=== PATIENT | female | born 1990 | race Caucasian/White ===

== ENCOUNTER 2020-07-13 08:34 | Emergency (ER) | payer OTHER, SELFPAY ==
[2020-07-13 08:48] VITALS: BP 115/85; PULSE 88; RESP 16; TEMP 36.9; O2SAT 97
--- NOTE | 2020-07-13 09:36 | ED.URI ---
HPI - URI/Sore Throat General Chief Complaint: Upper Respiratory Infection Stated Complaint: fever headache nausea Time Seen by Provider: 07/13/20 09:01 Source: patient and RN notes reviewed Mode of arrival: ambulatory Limitations: no limitations History of Present Illness HPI Narrative: Patient presents today complaining of a 2-day history of fatigue and headache with a fever that started yesterday with a T-max of 102.5 with associated symptoms including postnasal drip, body aches, congestion or rhinorrhea, nausea, sneezing, dry cough. Patient was seen at her [facility] [employer] [facility]'s office yesterday and is currently 6 weeks . She has been taking 500 mg tylenol without relief. Related Data Home Medications Medication Instructions Recorded Confirmed No Home Medications 07/13/20 07/13/20 Allergies Allergy/AdvReac Type Severity Reaction Status Date / Time No Known Allergies Allergy Verified 07/13/20 09:00 Review of Systems Review of Systems: Narrative: CONSTITUTIONAL: Denies chills, or sweats.+ Fatigue, fever body aches EYES: Denies visual changes, redness, or discharge. ENT: Denies sore throat, or otalgia.+ Rhinorrhea, congestion, postnasal drip CARDIOVASCULAR: Denies chest pain, palpitations, or edema. RESPIRATORY: Denies dyspnea.+ Cough GASTROINTESTINAL: Denies abdominal pain, vomiting, or diarrhea.+ Nausea GENITOURINARY: Denies dysuria or hematuria. SKIN: Denies rash, itching, or wounds. MUSCULOSKELETAL: Denies back pain, joint pain, or myalgia. NEUROLOGIC: Denies numbness, tingling, or weakness. + Headache PSYCH: Denies depression or anxiety. PMFSH Past Medical History Medical History (Updated 07/13/20 @ 09:43 by Eri Sandhu, [facility], ) Asthma Rosacea Comments At time of signature, I have reviewed and agree with nursing past medical, surgical, social and family history unless otherwise noted. Please see nursing chart for further information. There is no relevant family history pertinent to the presenting complaint Exam Narrative: Exam Narrative: GENERAL: Well-appearing, well-nourished, and in no acute distress. HEAD: Normocephalic, atraumatic. EYES: EOMI. No redness or drainage. Conjunctivae normal. ENT: Mucous membranes pink and moist. Nares congested. No rhinorrhea. TMs normal bilaterally. Throat erythematous without edema or exudate. Uvula midline. NECK: Normal AROM. Supple. Right anterior cervical chain lymphadenopathy. CHEST: No respiratory distress. Clear to auscultation. HEART: Regular rate and rhythm. No murmur appreciated. Normal peripheral pulses. EXTREMITIES: Normal range of motion. No edema. SKIN: Warm, dry, no rash. Capillary refill normal. Normal skin turgor. NEURO: No focal deficits. Alert and oriented x3. Gait steady. PSYCH: Normal affect. No signs of depression or anxiety. Course Vital Signs Vital signs: Vital Signs Temperature 98.4 F 07/13/20 08:48 Pulse Rate 88 07/13/20 08:48 Respiratory Rate 16 07/13/20 08:48 Blood Pressure 115/85 07/13/20 08:48 Pulse Oximetry 97 07/13/20 08:48 Temperature 98.4 F 07/13/20 08:48 Pulse Rate 88 07/13/20 08:48 Respiratory Rate 16 07/13/20 08:48 Blood Pressure 115/85 07/13/20 08:48 Pulse Oximetry 97 07/13/20 08:48 Reviewed. Pt has been instructed to follow up with her PCP regarding her elevated blood pressure today. MDM - URI/Sore Throat Differential Diagnosis Differential diagnosis: Likely upper respiratory infection, sinusitis, viral infection, bronchitis, influenza, pharyngitis and other (Strep throat, COVID-19) Lab Data Attestation: I reviewed the patient's lab results. Lab results narrative: Rapid Covid positive Labs: Strep Screen Presumptive Negative *(Reference Range: Negative)* Critical Care Time Critical Care Time Critical Care Time: No Discharge Plan Discharge Clinical Impression: COVID-19 Patient Disposition: Home,
== END 2020-07-13 09:59 | disposition home or self-care (01) ==
PROVIDERS: Emergency Provider Nurse Practitioner
DX: O98.511 Other viral diseases complicating pregnancy, first trimester (principal); B33.8 Other specified viral diseases; U07.1 COVID-19; O99.511 Diseases of the respiratory system complicating pregnancy, first trimester; Z3A.01 Less than 8 weeks gestation of pregnancy
CPT/HCPCS: 87081; 87426; 87880; 99213; C9803; G0463